=== PATIENT | male | born 1960 | race Caucasian/White ===

== ENCOUNTER 2017-04-10 11:35 | Emergency (ER) | payer SELFPAY ==
[2017-04-10 12:34] VITALS: BP 131/88
--- NOTE | 2017-04-10 12:54 | UC ---
Syncope/New Syncope HPI - HPI Summary HPI Summary: 56 yo male had a syncopal episode 2 days ago Ate a big meal smoke a little marijuana had 1/2 beer went to lay down to go to bed experience about 30 second of chest pressure and palpitations\ sat up and according to his significant other passed out was apneic and rigid for about a minute incontinent of urine partner started pounding on his chest and he awoke tried to get up and went out again for about 30 minutes since then he has felt fine - History Of Current Complaint Chief Complaint: UCGeneralIllness Stated Complaint: FAINTED ON FRIDAY Time Seen by Provider: 04/10/17 12:18 Hx Obtained From: Patient Onset/Duration: Sudden Onset, Lasting Minutes Activity At Onset: At Rest Timing: Minutes - about one Frequency: Episodes x___ - 2 Context: Witnessed Associated Head Trauma: No Pain Intensity: 0 - at present/had chest pressure prior to incident Pain Scale Used: 0-10 Numeric Aggravating Factor(s): Nothing Alleviating Factor(s): Spontaneous Resolution Associated Signs And Symptoms: Positive: Chest Pain - pressure, Diaphoresis - states he was clammy/sweaty when he awoke, Palpitations - Allergies/Home Medications Allergies/Adverse Reactions: Allergies Allergy/AdvReac Type Severity Reaction Status Date / Time Procaine [From Novocain] Allergy Altered Verified 04/10/17 12:06 Mental Status Home Medications: Home Medications NK [No Home Medications Reported] 04/10/17 [History Confirmed 04/10/17] PMH/Surg Hx/FS Hx/Imm Hx Previously Healthy: Yes - Surgical History Surgical History: Yes Surgery Procedure, Year, and Place: kidney stones surgically removed - Family History Known Family History: Positive: Cardiac Disease, Hypertension - Social History Alcohol Use: Occasionally Substance Use Type: Marijuana Substance Use Comment - Amount & Last Used: daily after work Smoking Status (MU): Light Every Day Tobacco Smoker Length of Time of Smoking/Using Tobacco: socially Review of Systems Constitutional: Negative Skin: Negative Eyes: Negative ENT: Negative Respiratory: Negative Cardiovascular: Palpitations - with chest pressure Gastrointestinal: Negative Genitourinary: Negative Motor: Negative Neurovascular: Negative Musculoskeletal: Negative Neurological: Negative Psychological: Negative Is Patient Immunocompromised?: No All Other Systems Reviewed And Are Negative: Yes Physical Exam Triage Information Reviewed: Yes Appearance: Well-Appearing, No Pain Distress, Well-Nourished Vital Signs: Initial Vital Signs Temp 99.7 F 04/10/17 12:08 Pulse 62 04/10/17 12:08 Resp 14 04/10/17 12:08 BP 136/76 04/10/17 12:08 Pulse Ox 100 04/10/17 12:08 Vital Signs Reviewed: Yes Eyes: Positive: Conjunctiva Clear ENT: Positive: Normal ENT inspection, Hearing grossly normal, Pharyngeal erythema, TMs normal. Negative: Nasal congestion, Nasal drainage, Tonsillar swelling, Tonsillar exudate, Trismus, Muffled/hoarse voice Dental Exam: Normal Neck: Positive: Supple, Nontender Respiratory: Positive: Lungs clear, Normal breath sounds, No respiratory distress, No accessory muscle use Cardiovascular: Positive: RRR, No Murmur. Negative: Tachycardia, Bradycardia Abdomen Description: Positive: Nontender, No Organomegaly, Soft. Negative: CVA Tenderness (R), CVA Tenderness (L) Musculoskeletal: Positive: ROM Intact, No Edema Neurological: Positive: Alert Psychological Exam: Normal Skin Exam: Normal Diagnostics - EKG Cardiac Rate: NL Cardiac Rhythm: Sinus: Normal Ectopy: None ST Segment: Normal Syncope Course/Dx - Course Course Of Treatment: I suggestted patient be transferred to the ER for work of his syncopal episode which was preceeded by palpitations and chest pressure. It sounds like he may have had an anoxic sz during episode. He refuses EMS transfer and for that reason signed an AMA. Per our Emergency Departments policy the ER was not notified as he was not an ambulance transfer. He states he will go directedly there - Differential Dx/Diagnosis Differential Diagnosis/HQI/PQRI: Dysrhythmia, Hypoglycemia, Metabolic Reaction, Myocardial Infarction, Pulmonary Embolism, Seizure, Other Provider Diagnoses: Syncopal episode of uncertain cause Discharge - Discharge Plan Condition: Guarded Disposition: AGAINST MEDICAL ADVICE
== END 2017-04-10 12:55 | disposition left against medical advice (07) ==
LOC: UCEAST 11:35
DX: R55 Syncope and collapse (principal); F17.210 Nicotine dependence, cigarettes, uncomplicated
CPT/HCPCS: 93005; 99202; G0463

== ENCOUNTER → 2017-04-10 13:45 | Emergency (ER) | payer SELFPAY ==
[2017-04-10 17:43] LABS: Hematocrit 44 % (42-52); Hemoglobin 14.8 g/dl (14.0-18.0); Mean Corpuscular HGB Conc 34 g/dl (31-36); Mean Corpuscular Hemoglobin 29 pg (27-31); Mean Corpuscular Volume 87 fL (80-94); Mean Platelet Volume 9 um3 (7.4-10.4); Red Cell Distribution Width 14 % (10.5-15); White Blood Count 7.5 10^3/ul (3.5-10.8)
[2017-04-10 19:23] LABS: Albumin 4.3 g/dL (3.2-5.2); BUN/Creatinine Ratio 15.6 (8-20); Calcium 9.4 mg/dL (8.6-10.3); EGFR African American 112.7 (>60); EGFR Non-African American 87.6 (>60); Globulin 2.6 g/dL (2-4); Total Bilirubin 0.4 mg/dL (0.2-1.0); Total Protein 6.9 g/dL (6.4-8.9)
--- NOTE | 2017-04-10 19:37 | RAD ---
INDICATION: Syncope COMPARISON: None TECHNIQUE: An AP portable view obtained at 1914 hours is submitted. FINDINGS: Bones/Soft Tissues: There are no acute bony findings. Cardiomediastinal: The cardiomediastinal silhouette is normal. Lungs: There are no infiltrates. Pleura: There are no pleural effusions. Other: None IMPRESSION: NO ACTIVE DISEASE
[2017-04-10 20:01] VITALS: BP 135/91
--- NOTE | 2017-04-11 00:33 | ED ---
Ayaan Reynaga Angela, scribed for Cha Jackson MD on 04/10/17 at 1939 . Syncope/Near Syncope - HPI Summary HPI Summary: This pt is a 56 y/o male presenting [place] [facility] [place]/o syncope 2 days ago. Pt reports that prior to his syncope he felt pressure on his diaphragm at 2200 2 days ago. Pt notes he has been feeling well ever since. Pt has not seen his PCP in 14 days. Pt denies any FHx of early coronary disease but has FHx of brain aneurysm. He states smoking marijuana daily and drinks alcohol occasionally. - History Of Current Complaint Chief Complaint: EDSyncope Time Seen by Provider: 04/10/17 18:39 Hx Obtained From: Patient Onset/Duration: Sudden Onset Context: Loss Of Consciousness Associated Head Trauma: No Aggravating Factor(s): Nothing Alleviating Factor(s): Nothing - Allergies/Home Medications Allergies/Adverse Reactions: Allergies Allergy/AdvReac Type Severity Reaction Status Date / Time Procaine [From Novocain] Allergy Altered Verified 04/10/17 12:06 Mental Status PMH/Surg Hx/FS Hx/Imm Hx Endocrine/Hematology History: Denies: Hx Diabetes Cardiovascular History: Denies: Hx Hypertension - Surgical History Surgery Procedure, Year, and Place: kidney stones surgically removed Infectious Disease History: Denies: Traveled Outside the [place] in Last 30 Days - Family History Known Family History: Positive: Cardiac Disease, Hypertension, Other - brain aneurysm - Social History Occupation: Employed Full-time - [employer] Alcohol Use: Occasionally Substance Use Type: Reports: Marijuana Substance Use Comment - Amount & Last Used: daily after work Smoking Status (MU): Light Every Day Tobacco Smoker Length of Time of Smoking/Using Tobacco: socially Review of Systems Negative: Fever, Chills Eyes: Negative ENT: Negative Cardiovascular: Negative Respiratory: Negative Gastrointestinal: Negative Genitourinary: Negative Musculoskeletal: Negative Skin: Negative Positive: Syncope All Other Systems Reviewed And Are Negative: Yes Physical Exam Vital Signs On Initial Exam: Initial Vitals Temp Pulse Resp BP Pulse Ox 98.6 F 70 17 121/68 98 04/10/17 13:54 04/10/17 13:54 04/10/17 13:54 04/10/17 13:54 04/10/17 13:54 Appearance: Positive: Well-Appearing, No Pain Distress Skin: Positive: Warm, Skin Color Reflects Adequate Perfusion, Dry Eyes: Positive: EOMI, ERON ENT: Positive: Pharynx normal, TMs normal Neck: Positive: Supple, Nontender Respiratory/Lung Sounds: Positive: Clear to Auscultation, Breath Sounds Present. Negative: Rales, Rhonchi, Wheezes Cardiovascular: Positive: RRR. Negative: Murmur, Rub, Other - gallop Abdomen Description: Positive: Nontender, Soft. Negative: Distended, Guarding, Other: - rebound Bowel Sounds: Positive: Present Neurological: Positive: Sensory/Motor Intact, Alert, Oriented to Person Place, Time, CN Intact II-III Psychiatric: Positive: Affect/Mood Appropriate Diagnostics - Vital Signs Vital Signs Temp Pulse Resp BP Pulse Ox 04/10/17 18:14 98.9 F 62 16 134/94 98 04/10/17 17:01 98.6 F 58 18 145/91 99 04/10/17 13:54 98.6 F 70 17 121/68 98 - Laboratory Lab Results: Lab Results 04/10/17 04/10/17 04/10/17 Range/Units 17:35 17:35 17:35 WBC 7.5 (3.5-10.8) 10^3/ul RBC 5.10 (4.0-5.4) 10^6/ul Hgb 14.8 (14.0-18.0) g/dl Hct 44 (42-52) % MCV 87 (80-94) fL MCH 29 (27-31) pg MCHC 34 (31-36) g/dl RDW 14 (10.5-15) % Plt Count 205 (150-450) 10^3/ul MPV 9 (7.4-10.4) um3 Neut % (Auto) 51.3 (38-83) % Lymph % (Auto) 35.7 (25-47) % [place] % (Auto) 8.7 (1-9) % Eos % (Auto) 3.1 (0-6) % Baso % (Auto) 1.2 (0-2) % Absolute Neuts (auto) 3.9 (1.5-7.7) 10^3/ul Absolute Lymphs (auto) 2.7 (1.0-4.8) 10^3/ul Absolute Monos (auto) 0.7 (0-0.8) 10^3/ul Absolute Eos (auto) 0.2 (0-0.6) 10^3/ul Absolute Basos (auto) 0.1 (0-0.2) 10^3/ul Absolute Nucleated RBC 0.01 10^3/ul Nucleated RBC % 0.1 INR (Anticoag Therapy) 0.90 (0.89-1.11) Sodium 137 (133-145) mmol/L Potassium 4.0 (3.5-5.0) mmol/L Chloride 101 (101-111) mmol/L Carbon Dioxide 26 (22-32) mmol/L Anion Gap 10 (2-11) mmol/L BUN 14 (6-24) mg/dL Creatinine 0.90 (0.67-1.17) mg/dL Est GFR ( Amer) 112.7 (>60) Est GFR (Non-Af Amer) 87.6 (>60) BUN/Creatinine Ratio 15.6 (8-20) Glucose 87 (70-100) mg/dL Calcium 9.4 (8.6-10.3) mg/dL Total Bilirubin 0.40 (0.2-1.0) mg/dL AST 30 (13-39) U/L ALT 20 (7-52) U/L Alkaline Phosphatase 38 (34-104) U/L Troponin I 0.00 (<0.04) ng/mL Total Protein 6.9 (6.4-8.9) g/dL Albumin 4.3 (3.2-5.2) g/dL Globulin 2.6 (2-4) g/dL Albumin/Globulin Ratio 1.7 (1-3) Result Diagrams: 04/10/17 17:35 04/10/17 17:35 Lab Statement: Any lab studies that have been ordered have been reviewed, and results considered in the medical decision making process. - Radiology Chest XR Xray Interpretation: No Acute Changes - IMPRESSION: No active disease. ED physician has reviewed this radiology report and agrees. Radiology Interpretation Completed By: Radiologist - EKG No standard instances Cardiac Rate: NL EKG Rhythm: Sinus Rhythm EKG Interpretation: LVH Course/Dx Course Of Treatment: 56 yo male who presented to the ED on afternoon after a syncopal episode on with the feeling of indigestion. his labs and cxr were normal but his ekg did show lvh. Pt does not have a pmd but [facility] - Diagnoses Provider Diagnoses: Syncope Discharge - Discharge Plan Condition: Stable Disposition: HOME Patient Education Materials: Syncope (ED) Referrals: [facility] PHYSICIAN REFERRAL [Outside] No Primary Care Phys,NOPCP [Primary Care Provider] - The documentation as recorded by the Ayaan garber Angela accurately reflects the service I personally performed and the decisions made by me, Cha Jackson MD.
== END | disposition home or self-care (01) ==
LOC: ED 13:45
DX: R55 Syncope and collapse (principal); F17.210 Nicotine dependence, cigarettes, uncomplicated
CPT/HCPCS: 36415; 71010; 80053; 84484; 85025; 85610; 99282